=== PATIENT | female | born 1970 | race Caucasian/White ===

== ENCOUNTER 2024-05-22 05:24 | Emergency (ER) | payer OTHER ==
[~2024-05-22] VITALS: Ht 160 cm; Wt 64.0 kg
[2024-05-22 05:31] VITALS: BP 132/88; PULSE 87; RESP 18; TEMP 97.6; O2SAT 99
[2024-05-22] MEDS: KETOROLAC 15MG/ML VIAL IM ONE (06:27)
[2024-05-22] MEDS ORDERED: IBUP-2029 MT (07:37)
== END 2024-05-22 07:45 | disposition home or self-care (01) ==
LOC: ER 05:24
DX: R07.81 Pleurodynia (principal)
CPT/HCPCS: 71101; 96372; 99283; J1885; Z7610